=== PATIENT | female | born 1985 | race Caucasian/White ===

== ENCOUNTER 2018-02-16 08:55 | Emergency (ER) | payer SELFPAY ==
[2018-02-16] MEDS ORDERED: cefTRIAXone\\ROCEPHIN 2 GM VIAL ONE (09:13)
[2018-02-16] MEDS ORDERED: Ketorolac Tromethamine 30 MG/ML VIAL ONE (09:14)
[2018-02-16 10:36] LABS: Bilirubin Negative (Negative); Blood, Urine Trace (Negative); Clarity CLOUDY (Clear); Glucose, Urine (Dipstick) 250 mg/dL (Negative); Leukocyte Moderate (Negative); Nitrite Positive (Negative); Protein, Urine (Dipstick) 30 mg/dL (Neg-Trace); Specific Gravity, Urine 1.019 (1.002-1.036); Urobilinogen 0.2 mg/dL (0.2-1.0); pH, Urine 5.5 (5.0-9.0)
[2018-02-16 10:37] LABS: Pregnancy Test - Urine (BHCG) Negative (Negative); Pregu Control Background? CLEAR/WHITE (CLR/WHITE); Pregu Control Bar Appear? YES (CONTROL BAR); Specific Gravity 1.019 (1.002-1.036)
[2018-02-16 10:38] LABS: Bacteria/HPF 2+ HPF (None Seen); Hyaline Casts/LPF 4-6 HYALINE CAST LPF (0-3 Hyaline); Pathc Cast-AUWi Flag 0.14 (0-2.49); Squamous Epithelial 0-3 HPF (0-3)
[2018-02-16 11:04] LABS: Hemoglobin 14.2 g/dL (12.0-16.0); Mean Corpuscular Hemoglobin 29.1 pg (27.0-31.0); Mean Platelet Volume 7.8 fL (7.4-10.4); Platelet Count 297 thou/uL (130-400); RBC Distribution Width 11.6 % (11.5-14.5); Red Blood Cell (RBC) Count 4.87 mill/uL (4.20-5.40); White Blood Cell (WBC) Count 21.3 thou/uL (4.8-10.8)
[2018-02-16 11:25] LABS: Band 23 % (5-11); Lymphocytes 6 % (21-51); MDiff Complete? YES; Monocytes 4 % (0-10); Neutrophil 66 % (42-75); RBC Morphology Normal; Reactive Lymphocytes 1 % (0-10)
[2018-02-16 11:26] LABS: ALT (SGPT) 15 U/L (8-55); AST (SGOT) 20 U/L (5-34); Alkaline Phosphatase 77 U/L (40-150); Anion Gap 15 mmol/L (10-20); BUN (Urea Nitrogen) 7 mg/dL (7.0-18.7); Bilirubin, Total 0.9 mg/dL (0.2-1.2); Calc. Creatinine Clearance 0 mL/min (70-130); Carbon Dioxide 20 mmol/L (22-29); Chloride 100 mmol/L (98-107); Estimated GFR-MDRD 81; Globulin 3.6 g/dL (2.4-3.5); Glucose 154 mg/dL (70-105); Lipase 43 U/L (8-78); Potassium 3.6 mmol/L (3.5-5.1); Protein, Total 7.6 g/dL (6.0-8.3); Sodium 131 mmol/L (136-145)
[2018-02-16] MEDS ORDERED: Ibuprofen 800 MG TAB ONE (12:16)
== END 2018-02-16 12:23 | disposition home or self-care (01) ==
LOC: ERS 08:55
DX: N10 Acute pyelonephritis (principal); F41.9 Anxiety disorder, unspecified; F43.10 Post-traumatic stress disorder, unspecified; F17.210 Nicotine dependence, cigarettes, uncomplicated
CPT/HCPCS: 80053; 81003; 81015; 81025; 83690; 85025; 96361; 96365; 96375; J0696; J1885; J1956

== ENCOUNTER 2019-07-04 09:43 | Emergency (ER) | payer SELFPAY ==
[2019-07-04] MEDS ORDERED: traMADol HCl 50 MG TAB ONE (21:28)
[2019-07-04] MEDS ORDERED: Ibuprofen 200 MG TAB ONE (21:28)
[2019-07-04] MEDS ORDERED: Ondansetron ODT 4 MG TAB ONE (21:28)
== END 2019-07-04 12:38 | disposition left against medical advice (07) ==
LOC: ERS 09:43
DX: R51 Headache (principal); R21 Rash and other nonspecific skin eruption; H57.89 Other specified disorders of eye and adnexa; R59.0 Localized enlarged lymph nodes
CPT/HCPCS: 99283; Q0162

== ENCOUNTER 2019-07-04 20:36 | Emergency (ER) | payer SELFPAY ==
[2019-07-04] MEDS ORDERED: Acetaminophen 500 MG TAB ONE (22:27)
[2019-07-04 23:14] LABS: #Eosinphils 0.1 thou/uL (0.0-0.7); #Lymphocytes 1.7 thou/uL (1.20-3.40); #Monocytes 0.6 thou/uL (0.11-0.59); #Neutrophils 7.3 thou/uL (1.40-6.50); %Basophils 0.4 % (0.0-1.0); %Eosinophils 1.5 % (0.0-10.0); %Lymphocytes 17.7 % (21.0-51.0); %Monocytes 6.5 % (0.0-10.0); %Neutrophils 73.8 % (42.0-75.0); Hemoglobin 14.5 g/dL (12.0-16.0); Mean Corpuscular HGB CONC 34.5 g/dL (32.0-36.0); Mean Corpuscular Hemoglobin 30.9 pg (27.0-31.0); Mean Corpuscular Volume 89.5 fL (78.0-98.0); Mean Platelet Volume 8.3 fL (7.4-10.4); Platelet Count 293 thou/uL (130-400); RBC Distribution Width 11.5 % (11.5-14.5); White Blood Cell (WBC) Count 9.8 thou/uL (4.8-10.8)
[2019-07-04 23:18] LABS: ALT (SGPT) 9 U/L (8-55); AST (SGOT) 13 U/L (5-34); Albumin 4.2 g/dL (3.5-5.0); Alkaline Phosphatase 67 U/L (40-110); Anion Gap 12 mmol/L (10-20); BUN (Urea Nitrogen) 8 mg/dL (7.0-18.7); Bilirubin, Total 0.5 mg/dL (0.2-1.2); Calc. Creatinine Clearance 0 mL/min (70-130); Calcium 9.1 mg/dL (7.8-10.44); Carbon Dioxide 23 mmol/L (22-29); Chloride 103 mmol/L (98-107); Estimated GFR-MDRD 81; Globulin 3.4 g/dL (2.4-3.5); Glucose 103 mg/dL (70-105); Potassium 4.4 mmol/L (3.5-5.1); Protein, Total 7.6 g/dL (6.0-8.3); Sodium 134 mmol/L (136-145)
--- NOTE | 2019-07-04 23:24 | RAD ---
FRONTAL VIEW CHEST: Comparison: 07-05-14 Indication: Fever FINDINGS: No lobar consolidation, effusion, or discrete pneumothorax. Cardiac silhouette is normal in size. Oss eous structures are intact. IMPRESSION: No focal consolidation. POS: [facility]
[2019-07-05] LABS: Bacteria/HPF None Seen HPF (None Seen); Bilirubin Negative (Negative); Blood, Urine Negative (Negative); Clarity Turbid (Clear); Glucose, Urine (Dipstick) Normal (Negative); Leukocyte 25 Leu/uL (Negative); Nitrite Negative (Negative); Protein, Urine (Dipstick) 100 mg/dL (Neg-Trace); Squamous Epithelial 0-3 HPF (0-3); Urobilinogen Normal mg/dL (Less than 2)
== END 2019-07-05 00:26 | disposition home or self-care (01) ==
LOC: ERS 20:36
DX: J11.1 Influenza due to unidentified influenza virus with other respiratory manifestations (principal); F17.210 Nicotine dependence, cigarettes, uncomplicated
CPT/HCPCS: 36415; 71045; 80053; 81003; 81015; 83605; 85025; 87040; 87081; 87086; 87430; 87804; 96360

== ENCOUNTER 2022-05-01 16:05 | Emergency (ER) | payer SELFPAY ==
[2022-05-01 16:41] LABS: Bilirubin Negative (Negative); Blood, Urine Negative (Negative); Clarity Turbid (Clear); Glucose, Urine (Dipstick) Normal (Negative); Ketone, Urine Trace mg/dL (Negative); Leukocyte 500 Leu/uL (Negative); Nitrite Negative (Negative); Protein, Urine (Dipstick) 30 mg/dL (Neg-Trace); Specific Gravity, Urine 1.038 (1.002-1.036); Squamous Epithelial 0-3 HPF (0-3); Urobilinogen 3 mg/dL (Less than 2); WBC/HPF Greater than 50 HPF (0-3)
[2022-05-01 17:04] LABS: Bacteria/HPF 2+ HPF (None Seen)
== END 2022-05-01 17:36 | disposition home or self-care (01) ==
LOC: ERS 16:05
DX: N39.0 Urinary tract infection, site not specified (principal); F17.210 Nicotine dependence, cigarettes, uncomplicated
CPT/HCPCS: 81003; 81015; 87077; 87086; 87186; 99283

== ENCOUNTER 2022-06-01 16:45 | Emergency (ER) | payer SELFPAY ==
[2022-06-01 17:49] LABS: Bilirubin Negative (Negative); Blood, Urine Negative (Negative); Clarity Clear (Clear); Glucose, Urine (Dipstick) Normal (Negative); Ketone, Urine Negative (Negative); Leukocyte Negative Leu/uL (Negative); Nitrite Negative (Negative); Protein, Urine (Dipstick) Negative (Neg-Trace); Specific Gravity, Urine 1.013 (1.002-1.036); Urobilinogen Normal mg/dL (Less than 2); pH, Urine 5.5 (5.0-9.0)
== END 2022-06-01 18:14 | disposition home or self-care (01) ==
LOC: ERS 16:45
DX: U07.1 COVID-19 (principal); F17.210 Nicotine dependence, cigarettes, uncomplicated
CPT/HCPCS: 81003; 87804; 99283; U0003; U0005